=== PATIENT | male | born 1955 | race Caucasian/White ===

== ENCOUNTER 2019-11-17 21:33 | Inpatient (IN) ==
[2019-11-18] MEDS ORDERED: Naloxone 0.4 MG/ML INJ IVP PRN (00:16)
[2019-11-18] MEDS ORDERED: *HR* Heparin 5,000 UNIT/ML VIAL IVP PRN ×2 (00:47)
[2019-11-18] MEDS ORDERED: Heparin 25,000 UNIT/250 ML D5W 25,000 UNIT/250 ML IV.SOLN IVC SCH (01:00)
[2019-11-18] MEDS: Albuterol 2.5 MG/3 ML NEBULIZER IH SCH ×6 (01:04→20:01)
[2019-11-18 01:25] LABS: Heparin anti-factor XA UFH 0.45 IU/mL (0.30-0.70)
[2019-11-18 01:26] LABS: Prothrombin Time 11.2 Seconds (9.4-12.1)
[2019-11-18 01:27] LABS: Activated Partial Thrombo Time 47.1 Seconds (26.0-36.0); Hematocrit 43.9 % (37.5-50.1); Hemoglobin 13.5 g/dL (12.9-16.9); Mean Corpuscular HGB Conc 30.8 g/dL (31.6-35.5); Mean Corpuscular Hemoglobin 28.8 pg (28.0-33.3); Mean Corpuscular Volume 93.6 fL (83.0-100.0); Mean Platelet Volume 9.7 fL (9.4-12.4); Platelet Count 203 K/mcL (140-400); Red Blood Count 4.69 M/mcL (4.19-5.50); Red Cell Distribution Width 14.8 % (11.5-14.5); White Blood Count 11.1 K/mcL (4.3-11.1)
[2019-11-18] MEDS ORDERED: Nitroglycerin 0.4 MG TAB.SUBL SL PRN (01:30)
[2019-11-18] MEDS: Azithromycin 500 MG in 0.9 % Sodium Chloride 250 ML IVPB SCH (01:47)
[2019-11-18] MEDS: *HR* LORazepam 1 MG TABLET PO SCH ×3 (02:00→11:44)
[2019-11-18] MEDS: Ondansetron 4 MG/2 ML VIAL IVP PRN (02:34)
[2019-11-18] MEDS ORDERED: Ipratropium/Albuterol Neb 3 ML IH SCH (04:00)
[2019-11-18] MEDS: MethylPREDNISolone 40 MG/ML VIAL IVP SCH ×4 (05:56→22:15)
[2019-11-18 06:25] LABS: BUN/Creatinine Ratio 55 (6-26); Blood Urea Nitrogen 31 mg/dL (8-23); Calcium 8.6 mg/dL (8.6-10.3); Carbon Dioxide > 45 mEq/L (23-29); Chloride 91 mEq/L (98-107); Glucose 111 mg/dL (70-105); Osmolality,Calculated 293 (280-300); Potassium 4.5 mEq/L (3.5-5.1); Sodium 138 mEq/L (136-145); eGFR For African Americans > 60 (> 60); eGFR For Non-African Americans > 60 (> 60)
[2019-11-18] MEDS ORDERED: *HR* LORazepam 1 MG TABLET PO SCH (08:00)
[2019-11-18 08:33] LABS: ABG Base Excess 24 mEq/L (-2 to 3); ABG HCO3 57 mEq/L (21-27); ABG Oxygen Saturation 92 % (95-98); ABG PCO2 112 mmHg (35-45); ABG PH 7.32 pH Units (7.32-7.45); ABG PO2 76 mmHg (85-104); ABG TCO2 > 50 mEq/L (20-26)
[2019-11-18] MEDS: Aspirin 81 MG TAB.CHEW PO SCH (08:59)
[2019-11-18] MEDS ORDERED: Furosemide 20 MG TABLET PO SCH (09:00)
[2019-11-18] MEDS: Loratadine 10 MG TABLET PO SCH (09:01)
[2019-11-18] MEDS ORDERED: NON-FORMULARY MEDICATION 1 EACH EACH (Prednisone [Prednisone] 10 MG) PO SCH (10:00)
[2019-11-18] MEDS ORDERED: *HR* LORazepam 1 MG TABLET PO PRN (11:54)
[2019-11-18 11:59] LABS: ABG Base Excess 23 mEq/L (-2 to 3); ABG HCO3 57 mEq/L (21-27); ABG Oxygen Saturation 93 % (95-98); ABG PCO2 110 mmHg (35-45); ABG PH 7.32 pH Units (7.32-7.45); ABG PO2 81 mmHg (85-104); ABG TCO2 > 50 mEq/L (20-26)
[2019-11-18] MEDS ORDERED: *HR* Heparin 5,000 UNIT/ML VIAL ONE (15:45)
[2019-11-18] MEDS ORDERED: Furosemide 20 MG/2 ML VIAL IVP SCH (15:45)
[2019-11-18] MEDS: *HR* Heparin 5,000 UNIT/ML VIAL SQ SCH (16:13)
[2019-11-18 18:30] LABS: ABG Base Excess 23 mEq/L (-2 to 3); ABG HCO3 54 mEq/L (21-27); ABG Oxygen Saturation 93 % (95-98); ABG PCO2 89 mmHg (35-45); ABG PH 7.39 pH Units (7.32-7.45); ABG PO2 73 mmHg (85-104); ABG TCO2 > 50 mEq/L (20-26)
[2019-11-18] MEDS: Furosemide 20 MG/2 ML VIAL IVP SCH (22:13)
[2019-11-19] MEDS: Albuterol 2.5 MG/3 ML NEBULIZER IH SCH ×8 (00:13→23:35)
[2019-11-19] MEDS: Azithromycin 500 MG in 0.9 % Sodium Chloride 250 ML IVPB SCH (01:24)
[2019-11-19 01:48] LABS: Basophils % 0.1 %; Hematocrit 43.5 % (37.5-50.1); Hemoglobin 13.5 g/dL (12.9-16.9); Immature Granulocytes % 0.3 % (0-4); Lymphocytes # 0.1 K/mcL (0.6-4.6); Lymphocytes % 1.3 %; Mean Corpuscular Hemoglobin 29.8 pg (28.0-33.3); Mean Platelet Volume 9.9 fL (9.4-12.4); Monocytes # 0.7 K/mcL (0.0-1.3); Monocytes % 6.4 %; Platelet Count 182 K/mcL (140-400); Red Blood Count 4.53 M/mcL (4.19-5.50); Red Cell Distribution Width 14.6 % (11.5-14.5); Segmented Neutrophils % 91.9 %; White Blood Count 10.9 K/mcL (4.3-11.1)
[2019-11-19 02:08] LABS: BUN/Creatinine Ratio 66 (6-26); Blood Urea Nitrogen 39 mg/dL (8-23); Calcium 8.7 mg/dL (8.6-10.3); Carbon Dioxide > 45 mEq/L (23-29); Chloride 86 mEq/L (98-107); Glucose 108 mg/dL (70-105); Magnesium 2.1 mg/dL (1.6-2.6); Osmolality,Calculated 298 (280-300); Phosphorous 4.4 mg/dL (2.7-4.5); Potassium 4.6 mEq/L (3.5-5.1); Sodium 139 mEq/L (136-145); eGFR For African Americans > 60 (> 60); eGFR For Non-African Americans > 60 (> 60)
[2019-11-19] MEDS: Ondansetron 4 MG/2 ML VIAL IVP PRN (02:13)
[2019-11-19 02:47] LABS: Platelet Estimate Normal (Normal)
[2019-11-19 04:25] LABS: ABG Base Excess 22 mEq/L (-2 to 3); ABG HCO3 55 mEq/L (21-27); ABG Oxygen Saturation 93 % (95-98); ABG PCO2 99 mmHg (35-45); ABG PH 7.35 pH Units (7.32-7.45); ABG PO2 79 mmHg (85-104); ABG TCO2 > 50 mEq/L (20-26)
[2019-11-19] MEDS: *HR* Heparin 5,000 UNIT/ML VIAL SQ SCH ×2 (06:07→17:23)
[2019-11-19] MEDS: MethylPREDNISolone 40 MG/ML VIAL IVP SCH (06:07)
[2019-11-19] MEDS: Loratadine 10 MG TABLET PO SCH (08:31)
[2019-11-19] MEDS: Aspirin 81 MG TAB.CHEW PO SCH (08:32)
[2019-11-19] MEDS: Furosemide 20 MG/2 ML VIAL IVP SCH ×2 (08:32→19:34)
[2019-11-19] MEDS: BuPROPion XL (24 HR) 150 MG TABLET PO SCH (08:45)
[2019-11-19] MEDS: DilTIAZem CD (24hr) 180 MG CAP.ER.24H PO SCH (08:45)
[2019-11-19] MEDS: PARoxetine 20 MG TABLET PO SCH (08:45)
[2019-11-19 13:17] LABS: ABG Base Excess 26 mEq/L (-2 to 3); ABG HCO3 61 mEq/L (21-27); ABG Oxygen Saturation 100 % (95-98); ABG PCO2 117 mmHg (35-45); ABG PH 7.32 pH Units (7.32-7.45); ABG PO2 299 mmHg (85-104); ABG TCO2 > 50 mEq/L (20-26); Blood Gas VT 500 cc
[2019-11-19] MEDS ORDERED: Ipratropium/Albuterol Neb 3 ML ONE (13:29)
[2019-11-19] MEDS ORDERED: MethylPREDNISolone 40 MG/ML VIAL IVP SCH (14:00)
[2019-11-19] MEDS ORDERED: Ipratropium/Albuterol Neb 3 ML IH ONE (14:15)
[2019-11-19] MEDS ORDERED: methylPREDNISolone 125 MG/2 ML VIAL IVP ONE (14:51)
[2019-11-19] MEDS ORDERED: Morphine Sulfate Oral CONC 10 MG/0.5 ML ORAL.SYG SL PRN (15:42)
[2019-11-19] MEDS ORDERED: Ipratropium/Albuterol Neb 3 ML IH SCH (16:00)
[2019-11-19] MEDS: *HR* LORazepam 1 MG TABLET PO SCH (19:34)
[2019-11-19] MEDS: Ipratropium/Albuterol Neb 3 ML IH SCH (19:35)
[2019-11-20] MEDS: Albuterol 2.5 MG/3 ML NEBULIZER IH SCH ×5 (01:04→09:13)
[2019-11-20] MEDS: *HR* Heparin 5,000 UNIT/ML VIAL SQ SCH ×3 (01:08→18:51)
[2019-11-20] MEDS: Azithromycin 500 MG in 0.9 % Sodium Chloride 250 ML IVPB SCH (01:08)
[2019-11-20] MEDS: Ondansetron 4 MG/2 ML VIAL IVP PRN (01:29)
[2019-11-20 05:57] LABS: Basophils % 0.1 %; Hematocrit 41.7 % (37.5-50.1); Immature Granulocytes % 0.3 % (0-4); Lymphocytes # 0.2 K/mcL (0.6-4.6); Lymphocytes % 3.2 %; Mean Corpuscular HGB Conc 31.2 g/dL (31.6-35.5); Mean Corpuscular Hemoglobin 29.8 pg (28.0-33.3); Mean Corpuscular Volume 95.6 fL (83.0-100.0); Mean Platelet Volume 10.3 fL (9.4-12.4); Monocytes # 0.4 K/mcL (0.0-1.3); Monocytes % 5.9 %; Neutrophils # 6.3 K/mcL (1.6-8.9); Platelet Count 161 K/mcL (140-400); Red Blood Count 4.36 M/mcL (4.19-5.50); Red Cell Distribution Width 14.5 % (11.5-14.5); Segmented Neutrophils % 90.5 %
[2019-11-20 06:22] LABS: BUN/Creatinine Ratio 94 (6-26); Blood Urea Nitrogen 49 mg/dL (8-23); Calcium 8.8 mg/dL (8.6-10.3); Carbon Dioxide > 45 mEq/L (23-29); Chloride 87 mEq/L (98-107); Glucose 118 mg/dL (70-105); Magnesium 2.3 mg/dL (1.6-2.6); Osmolality,Calculated 302 (280-300); Phosphorous 3.1 mg/dL (2.7-4.5); Potassium 4.3 mEq/L (3.5-5.1); Sodium 139 mEq/L (136-145); eGFR For African Americans > 60 (> 60); eGFR For Non-African Americans > 60 (> 60)
[2019-11-20] MEDS: Ipratropium/Albuterol Neb 3 ML IH SCH ×5 (07:22→23:57)
[2019-11-20] MEDS: BuPROPion XL (24 HR) 150 MG TABLET PO SCH (09:24)
[2019-11-20] MEDS: *HR* LORazepam 1 MG TABLET PO SCH ×3 (09:24→22:50)
[2019-11-20] MEDS: predniSONE 20 MG TABLET PO SCH ×2 (09:24→22:51)
[2019-11-20] MEDS: Loratadine 10 MG TABLET PO SCH (09:24)
[2019-11-20] MEDS: DilTIAZem CD (24hr) 180 MG CAP.ER.24H PO SCH (09:24)
[2019-11-20] MEDS: Aspirin 81 MG TAB.CHEW PO SCH (09:25)
[2019-11-20] MEDS: Furosemide 20 MG/2 ML VIAL IVP SCH ×2 (09:25→22:51)
[2019-11-20] MEDS: PARoxetine 20 MG TABLET PO SCH (09:25)
[2019-11-20] MEDS ORDERED: Ipratropium/Albuterol Neb 3 ML ONE (10:30)
[2019-11-21] MEDS: Azithromycin 500 MG in 0.9 % Sodium Chloride 250 ML IVPB SCH (02:03)
[2019-11-21] MEDS: *HR* Heparin 5,000 UNIT/ML VIAL SQ SCH ×3 (02:04→18:12)
[2019-11-21] MEDS: Ipratropium/Albuterol Neb 3 ML IH SCH ×3 (04:11→07:31)
[2019-11-21] MEDS: DilTIAZem CD (24hr) 180 MG CAP.ER.24H PO SCH (09:00)
[2019-11-21] MEDS: BuPROPion XL (24 HR) 150 MG TABLET PO SCH (09:00)
[2019-11-21] MEDS: predniSONE 20 MG TABLET PO SCH ×2 (09:01→20:20)
[2019-11-21] MEDS: *HR* LORazepam 1 MG TABLET PO SCH ×2 (09:01→20:19)
[2019-11-21] MEDS: Aspirin 81 MG TAB.CHEW PO SCH (09:01)
[2019-11-21] MEDS: PARoxetine 20 MG TABLET PO SCH (09:01)
[2019-11-21] MEDS: Loratadine 10 MG TABLET PO SCH (09:02)
[2019-11-21] MEDS: Furosemide 20 MG/2 ML VIAL IVP SCH ×2 (09:02→20:20)
[2019-11-21] MEDS ORDERED: Albuterol 2.5 MG/3 ML NEBULIZER ONE (11:23)
[2019-11-21] MEDS: Albuterol 2.5 MG/3 ML NEBULIZER IH SCH ×4 (11:27→23:45)
[2019-11-21 13:21] LABS: Basophils % 0.1 %; Hematocrit 40.7 % (37.5-50.1); Hemoglobin 12.6 g/dL (12.9-16.9); Immature Granulocytes % 0.3 % (0-4); Lymphocytes # 0.2 K/mcL (0.6-4.6); Lymphocytes % 2.5 %; Mean Corpuscular Volume 93.6 fL (83.0-100.0); Monocytes # 0.5 K/mcL (0.0-1.3); Neutrophils # 8.2 K/mcL (1.6-8.9); Platelet Count 174 K/mcL (140-400); Red Blood Count 4.35 M/mcL (4.19-5.50); Red Cell Distribution Width 14.5 % (11.5-14.5); Segmented Neutrophils % 91.1 %
[2019-11-21 13:54] LABS: BUN/Creatinine Ratio 66 (6-26); Blood Urea Nitrogen 35 mg/dL (8-23); Calcium 8.7 mg/dL (8.6-10.3); Carbon Dioxide > 45 mEq/L (23-29); Chloride 85 mEq/L (98-107); Glucose 103 mg/dL (70-105); Osmolality,Calculated 292 (280-300); Potassium 4.6 mEq/L (3.5-5.1); Sodium 137 mEq/L (136-145); eGFR For African Americans > 60 (> 60); eGFR For Non-African Americans > 60 (> 60)
[2019-11-22 00:27] LABS: ABG Base Excess > 30 mEq/L (-2 to 3); ABG HCO3 63 mEq/L (21-27); ABG Oxygen Saturation 93 % (95-98); ABG PCO2 88 mmHg (35-45); ABG PH 7.46 pH Units (7.32-7.45); ABG PO2 69 mmHg (85-104); ABG TCO2 > 50 mEq/L (20-26)
[2019-11-22] MEDS: Albuterol 2.5 MG/3 ML NEBULIZER IH SCH ×5 (03:47→19:47)
[2019-11-22] MEDS: *HR* Heparin 5,000 UNIT/ML VIAL SQ SCH ×3 (04:23→17:43)
[2019-11-22] MEDS: *HR* LORazepam 1 MG TABLET PO SCH ×3 (04:28→20:00)
[2019-11-22 04:39] LABS: ABG Base Excess 28 mEq/L (-2 to 3); ABG HCO3 60 mEq/L (21-27); ABG Oxygen Saturation 81 % (95-98); ABG PCO2 91 mmHg (35-45); ABG PH 7.43 pH Units (7.32-7.45); ABG PO2 49 mmHg (85-104); ABG TCO2 > 50 mEq/L (20-26)
[2019-11-22 05:20] LABS: BUN/Creatinine Ratio 63 (6-26); Blood Urea Nitrogen 34 mg/dL (8-23); Calcium 9.2 mg/dL (8.6-10.3); Carbon Dioxide > 45 mEq/L (23-29); Chloride 84 mEq/L (98-107); Glucose 126 mg/dL (70-105); Osmolality,Calculated 291 (280-300); Potassium 4.4 mEq/L (3.5-5.1); Sodium 136 mEq/L (136-145); eGFR For African Americans > 60 (> 60); eGFR For Non-African Americans > 60 (> 60)
[2019-11-22] MEDS: Morphine Sulfate Oral CONC 10 MG/0.5 ML ORAL.SYG SL PRN (09:42)
[2019-11-22] MEDS: DilTIAZem CD (24hr) 180 MG CAP.ER.24H PO SCH (09:44)
[2019-11-22] MEDS: Loratadine 10 MG TABLET PO SCH (09:44)
[2019-11-22] MEDS: Furosemide 20 MG/2 ML VIAL IVP SCH (09:44)
[2019-11-22] MEDS: predniSONE 20 MG TABLET PO SCH ×2 (09:44→19:59)
[2019-11-22] MEDS: PARoxetine 20 MG TABLET PO SCH (09:45)
[2019-11-22] MEDS: Azithromycin 250 MG TABLET PO SCH (09:45)
[2019-11-22] MEDS: Aspirin 81 MG TAB.CHEW PO SCH (09:45)
[2019-11-23] MEDS: *HR* Heparin 5,000 UNIT/ML VIAL SQ SCH ×3 (02:17→18:32)
[2019-11-23] MEDS: Albuterol 2.5 MG/3 ML NEBULIZER IH SCH ×7 (03:13→23:45)
[2019-11-23 04:15] LABS: Basophils % 0.1 %; Hematocrit 38.6 % (37.5-50.1); Hemoglobin 12.6 g/dL (12.9-16.9); Immature Granulocytes % 0.3 % (0-4); Lymphocytes # 0.2 K/mcL (0.6-4.6); Lymphocytes % 1.6 %; Mean Corpuscular HGB Conc 32.6 g/dL (31.6-35.5); Mean Corpuscular Hemoglobin 30.1 pg (28.0-33.3); Mean Corpuscular Volume 92.3 fL (83.0-100.0); Mean Platelet Volume 10.9 fL (9.4-12.4); Monocytes # 0.6 K/mcL (0.0-1.3); Monocytes % 5.3 %; Neutrophils # 10.9 K/mcL (1.6-8.9); Platelet Count 197 K/mcL (140-400); Red Blood Count 4.18 M/mcL (4.19-5.50); Red Cell Distribution Width 14.2 % (11.5-14.5); Segmented Neutrophils % 92.7 %; White Blood Count 11.7 K/mcL (4.3-11.1)
[2019-11-23 04:29] LABS: Platelet Estimate Normal (Normal)
[2019-11-23 04:52] LABS: BUN/Creatinine Ratio 65 (6-26); Blood Urea Nitrogen 31 mg/dL (8-23); Carbon Dioxide > 45 mEq/L (23-29); Chloride 84 mEq/L (98-107); Glucose 136 mg/dL (70-105); Osmolality,Calculated 287 (280-300); Potassium 3.9 mEq/L (3.5-5.1); Sodium 134 mEq/L (136-145); eGFR For African Americans > 60 (> 60); eGFR For Non-African Americans > 60 (> 60)
[2019-11-23] MEDS: DilTIAZem CD (24hr) 180 MG CAP.ER.24H PO SCH (07:53)
[2019-11-23] MEDS: Loratadine 10 MG TABLET PO SCH (07:53)
[2019-11-23] MEDS: *HR* LORazepam 1 MG TABLET PO SCH ×3 (07:53→20:23)
[2019-11-23] MEDS: Aspirin 81 MG TAB.CHEW PO SCH (07:53)
[2019-11-23] MEDS: predniSONE 20 MG TABLET PO SCH ×2 (07:53→20:23)
[2019-11-23] MEDS: Azithromycin 250 MG TABLET PO SCH (07:53)
[2019-11-23] MEDS ORDERED: Furosemide 20 MG/2 ML VIAL IVP SCH (09:00)
[2019-11-23] MEDS: Morphine Sulfate Oral CONC 10 MG/0.5 ML ORAL.SYG SL PRN ×2 (14:53→18:32)
[2019-11-24] MEDS: Albuterol 2.5 MG/3 ML NEBULIZER IH SCH ×3 (03:43→11:19)
[2019-11-24] MEDS: *HR* Heparin 5,000 UNIT/ML VIAL SQ SCH (04:19)
[2019-11-24] MEDS: predniSONE 20 MG TABLET PO SCH (08:10)
[2019-11-24] MEDS: Loratadine 10 MG TABLET PO SCH (08:11)
[2019-11-24] MEDS: Aspirin 81 MG TAB.CHEW PO SCH (08:11)
[2019-11-24] MEDS: *HR* LORazepam 1 MG TABLET PO SCH (08:12)
[2019-11-24] MEDS: DilTIAZem CD (24hr) 180 MG CAP.ER.24H PO SCH (08:13)
[2019-11-24] MEDS ORDERED: Furosemide 40 MG TABLET PO SCH (09:00)
[2019-11-24 10:01] VITALS: BP 109/78
[2019-11-24] MEDS: Morphine Sulfate Oral CONC 10 MG/0.5 ML ORAL.SYG SL PRN (11:15)
== END 2019-11-24 13:36 | disposition hospice, home (50) ==
LOC: 3BNU → SUATTDRO 23:45 → ICNU 11-19 14:16 → 3ANU 11-20 17:44
PROVIDERS: ADMIT Family Medicine; ATTEND Internal Medicine